=== PATIENT | female | born 1970 | race Caucasian/White ===

== ENCOUNTER 2017-09-29 17:52 | Observation (INO) ==
--- NOTE | 2017-09-29 18:38 | Emergency Department Note ---
START Narrative - START START: 47-year-old female presented to the emergency Department chief complaint of left lateral chest pain. Patient recently started taking Chantix on Wednesday. She was concerned that this could possibly be causing her symptoms. She states approximately 2 days ago she started having left lateral pectoralis major tenderness. This pain did not radiate. She denies diaphoresis, nausea, vomiting with this. She has no significant cardiac history. She has no history of blood clots, hormonal replacement, recent long trips or family history of blood clots. Patient states the pain gets worse when she lays back and stretches that side. We will perform a cardiac workup including EKG, troponin, chest x-ray. We will send this patient out to the 19. Patient is alert and oriented 3 in the room and stable vital signs at this time. She agrees with this plan. <Ary Hernandez - Last Filed: 09/29/17 18:36> - START START: I examined this patient and my medical decision-making was reviewed with the Resident Physician. I agree with the documented findings, disposition and treatment plan as described except to the extent set forth below. Initial start note done. Patient with chest pain workup. We will sign this out to the evening her physician Dr. Aliza Duarte for further management and disposition. <Carlos Hayes - Last Filed: 09/29/17 18:44>
[2017-09-29 19:08] LABS: Basophils # 0.1 K/mcL (0.0-0.2); Basophils % 0.6 %; Eosinophils # 0.2 K/mcL (0.0-0.6); Eosinophils % 2.6 %; Hematocrit 39.9 % (35.3-44.9); Hemoglobin 13.3 g/dL (11.5-15.4); Immature Granulocytes % 0.3 % (0-4); Immature Platelets 5.6 % (1.1-6.1); Lymphocytes # 2.1 K/mcL (0.6-4.6); Lymphocytes % 26.5 %; Mean Corpuscular HGB Conc 33.3 g/dL (31.6-35.5); Mean Corpuscular Hemoglobin 28.8 pg (28.0-33.3); Mean Corpuscular Volume 86.4 fL (83.0-100.0); Mean Platelet Volume 10.5 fL (9.4-12.4); Monocytes # 0.4 K/mcL (0.0-1.3); Monocytes % 4.5 %; Neutrophils # 5.2 K/mcL (1.6-8.9); Platelet Count 329 K/mcL (140-400); Red Blood Count 4.62 M/mcL (3.82-4.97); Red Cell Distribution Width 13.3 % (11.5-14.5); Segmented Neutrophils % 65.5 %
[2017-09-29 19:21] LABS: BUN/Creatinine Ratio 13 (6-26); Blood Urea Nitrogen 10 mg/dL (7-20); Calcium 9.3 mg/dL (8.6-10.8); Carbon Dioxide 25 mEq/L (19-29); Chloride 106 mEq/L (98-109); Glucose 91 mg/dL (70-99); Osmolality,Calculated 287 (280-300); Potassium 3.7 mEq/L (3.5-4.5); Sodium 139 mEq/L (136-145); eGFR For African Americans > 60 (> 60); eGFR For Non-African Americans > 60 (> 60)
[2017-09-29] MEDS ORDERED: Aspirin 81 MG TAB.CHEW PO ONE (19:40)
[2017-09-29] MEDS ORDERED: Ipratropium/Albuterol Neb 3 ML IH ONE (20:29)
--- NOTE | 2017-09-29 21:03 | Emergency Department Note ---
Disposition Clinical Impression: Chest pain Qualifiers: Chest pain type: unspecified Qualified Code(s): R07.9 - Chest pain, unspecified Disposition: Admitted As Inpatient Condition: Good General Adult HPI - General Chief complaint: ED Shortness of Breath/Dyspnea Stated complaint: SOB/EKG Time Seen by Provider: 09/29/17 18:28 Source: patient Limitations: no limitations Nursing Notes Reviewed: Yes Vital Signs Reviewed: Yes ( ) - History of Present Illness HPI Narrative: Patient presents as a signout from the day team. Patient presents for evaluation of chest pain and exertional dyspnea. Seen at outpatient office with abnormal EKG. Referred to the emergency department. Patient states symptoms started several days ago with left-sided chest pain that is worse with movement and exertion. 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 Patient cannot walk up her normal amount of steps without getting short of breath. Patient has had generalized fatigue. Pain does not radiate. No associated nausea or vomiting. No diaphoresis. Her vital signs are 100% on room air. Pulse rate 80. The risk factors for PE. No history of PE. There are active cancer. No recent surgeries. No family history of PE. PERC criteria negative. Pain Scale: 0 - Related Data Home Medications Medication Instructions Recorded Confirmed No Known Home Drugs 09/29/17 09/29/17 Allergies Allergy/AdvReac Type Severity Reaction Status Date / Time acetaminophen AdvReac Rash Verified 09/29/17 21:31 [From Tylenol Sinus Severe Congest] guaifenesin AdvReac Rash Verified 09/29/17 21:31 [From Tylenol Sinus Severe Congest] pseudoephedrine AdvReac Rash Verified 09/29/17 21:31 [From Tylenol Sinus Severe Congest] Review of Systems: CONSTITUTIONAL: fatigue No weight loss, fever, chills, weakness HEENT: Eyes: No visual changes. Ears, Nose, Throat: No hearing loss, difficulty talking or unable to swallow. SKIN: No rash or itching. CARDIOVASCULAR: chest pain; exertional dyspnea RESPIRATORY: No shortness of breath, cough or sputum. GASTROINTESTINAL: No anorexia, nausea, vomiting or diarrhea. No abdominal pain or blood. GENITOURINARY: No burning on urination or hematuria. NEUROLOGICAL: No headache, dizziness, syncope, paralysis, ataxia, numbness or tingling in the extremities. No change in bowel or bladder control. MUSCULOSKELETAL: No muscle pain, back pain, joint pain or stiffness. 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 CV: RRR, no MRGs Abdomen: Soft, non-tender; no rebound or gaurding Extremities: No peripheral edema or extremity lymphadenopathy Skin: Normal temperature; no rash, ulcers or lesions Psych: Appropriate mood and affect Neuro: alert and oriented to person, place and time - General Limitations: no limitations General appearance: alert Course - Reevaluation(s) Reevaluation #1: Patient's blood work is unremarkable. Patient's symptoms did not improve with albuterol. Patient's EKG has inverted T waves in anterior leads as well as in lead 3. Patient was brought into the hospital for further evaluation. - Consultations Consultation #1: Discussed with the Hospitalist. Pt accepted for admission. Vital Signs Temperature 98.5 F 09/29/17 18:18 Pulse Rate 92 09/29/17 18:18 Respiratory Rate 16 09/29/17 18:18 Blood Pressure 128/93 09/29/17 18:18 O2 Sat by Pulse Oximetry 100 09/29/17 18:18 Temperature 98.5 F 09/29/17 18:18 Pulse Rate 84 09/29/17 21:36 Respiratory Rate 16 09/29/17 21:36 Blood Pressure 123/86 09/29/17 21:36 O2 Sat by Pulse Oximetry 97 09/29/17 21:36 Oxygen Delivery Oxygen Delivery Room Air Medical Decision Making - Medical Records Medical records reviewed: Yes I reviewed the patient's medical records. - Lab Data Lab results reviewed: Yes I reviewed the patient's lab results. Result diagrams: 09/29/17 19:01 09/29/17 19:01 Lab Results 11/15/17 11/15/17 11/15/17 Range/Units 19:01 19:01 19:01 WBC 8.0 (4.3-11.1) K/mcL RBC 4.62 (3.82-4.97) M/mcL Hgb 13.3 (11.5-15.4) g/dL Hct 39.9 (35.3-44.9) % MCV 86.4 (83.0-100.0) fL MCH 28.8 (28.0-33.3) pg MCHC 33.3 (31.6-35.5) g/dL RDW 13.3 (11.5-14.5) % Plt Count 329 (140-400) K/mcL MPV 10.5 (9.4-12.4) fL Immature Gran % 0.3 (0-4) % Seg Neutrophils % 65.5 % Lymphocytes % 26.5 % Monocytes % 4.5 % Eosinophils % 2.6 % Basophils % 0.6 % Neutrophils # 5.2 (1.6-8.9) K/mcL Lymphocytes # 2.1 (0.6-4.6) K/mcL Monocytes # 0.4 (0.0-1.3) K/mcL Eosinophils # 0.2 (0.0-0.6) K/mcL Basophils # 0.1 (0.0-0.2) K/mcL Immature Plt Fraction 5.6 (1.1-6.1) % Sodium 139 (136-145) mEq/L Potassium 3.7 (3.5-4.5) mEq/L Chloride 106 (98-109) mEq/L Carbon Dioxide 25 (19-29) mEq/L BUN 10 (7-20) mg/dL Creatinine 0.76 (0.57-1.11) mg/dL Est GFR ( Amer) > 60 (> 60) Est GFR (Non-Af Amer) > 60 (> 60) BUN/Creatinine Ratio 13 (6-26) Glucose 91 (70-99) mg/dL Calculated Osmolality 287 (280-300) Calcium 9.3 (8.6-10.8) mg/dL Troponin I 0.00 (0-0.03) ng/mL - Radiology Data Radiology results reviewed: Yes I reviewed the patient's radiology results. - EKG Data EKG #1 EKG attestation: Yes I reviewed and interpreted this EKG. EKG results narrative: EKG shows sinus rhythm with ventricular rate of 67 bpm. OH 172. QRS 92. QTC 396. Patient has no significant ST elevations or depressions. Patient has T- wave inversion in V1 and V2 V3 V4 and lead 3. Attestation Statement - Attestation Attestation: I examined this patient and my medical decision-making was reviewed with the Resident Physician, Dr. Geiger. I agree with the documented findings, disposition and treatment plan as described except to the extent set forth below. Patient is a 47-year-old white female, history of smoking who presents to the emergency department seen initially by the [facility] team and Dr. Emanuel for initial assessment for chest pain and shortness of breath. Patient had no prior cardiac evaluation in the past and upon initial evaluation in an outlying facility she was found to have an abnormal EKG and sent to the emergency department. Patient states over the last 2 days she has been having exertional dyspnea associated with some left-sided chest pain which starts under her left axillary and wraps around the left upper aspect of her chest wall. Patient states her symptoms are relieved with rest. She denies any fevers or chills, cough, no diaphoresis, no lightheadedness or syncope, no abdominal pain or flank pain. I agree with patient's physical exam findings as documented. Patient's EKG showed a normal sinus rhythm but with T-wave inversion in V1 through V4. There is no old EKG for comparison. Patient's laboratory evaluation including troponin were negative. Patient meets perk-negative criteria. Chest x-ray was unremarkable. Patient's clinical symptoms and EKG concerning for unstable angina, discussed admission with the patient and she is in agreement with this plan. Case was discussed with the hospitalist who accepted the patient for admission for further evaluation and management.
[2017-09-30] MEDS ORDERED: Naloxone 0.4 MG/ML INJ IVP PRN (00:34)
--- NOTE | 2017-09-30 05:07 | Internal Med History&Physical ---
Date of Encounter: 09/30/17 Time of Encounter: 00:15 Assessment and Plan (1) Chest pain Current visit: Yes Status: Acute Patient has a typical chest pain. With EKG changes. Need to rule out ACS. - Patient has no tachycardia or desaturation. D-dimer negative, PE is less likely. - We will place the patient on continuous cardiac monitoring. - 3 sets of troponin - Echocardiogram - Repeat EKG in a.m. - Cardiology consult Qualifiers: Chest pain type: chest pain on breathing Qualified Code(s): R07.1 - Chest pain on breathing; R07.81 - Pleurodynia (2) DVT prophylaxis Current visit: Yes Status: Acute Heparin subcutaneously Internal Medicine - H&P: HPI Chief complaint: Chest pain Admitted From: Home Plans for Post Hospital Care: Home History of present illness: Ms. Garza is a 47 year old female generally in good health, on no home medication, present to ER for chest pain. Patient said she started to have chest pain since yesterday about the noon time. Pain is located on left side of chest, under the arm, radiated to left shoulder, and also has mid chest heaviness. Patient also complaining exertional shortness of breath since yesterday. Patient said the pain getting worse when she takes a deep breath. Patient denies fever, cough, nausea, vomiting, or diaphoresis. Patient went to see primary doctor today and had a EKG, which was abnormal. She was advised that to come to ER immediately. In ER, repeat EKG shows V2-v4 T wave inversion. She was admitted to rule out ACS. Patient denies leg swelling or leg pain, she has no recent travel. Past Med Surg Social Fam HX - Past Medical History Medical history: no medical history Psychiatric history: no psych history - Past Surgical History Surgical History: cholecystectomy - Social History Smoking Status: Current every day smoker Packs per day: 0.5 Smokeless Tobacco Status: No Alcohol use: none Drug use: none - Family History Father Hx Family Cardiac Disorders: Yes (Stents and CABG) Internal Medicine - H&P: Meds No Known Home Drugs 09/29/17 [History] 3 Allergy/AdvReac Type Severity Reaction Status Date / Time acetaminophen AdvReac Rash Verified 09/29/17 21:31 [From Tylenol Sinus Severe Congest] guaifenesin AdvReac Rash Verified 09/29/17 21:31 [From Tylenol Sinus Severe Congest] pseudoephedrine AdvReac Rash Verified 09/29/17 21:31 [From Tylenol Sinus Severe Congest] All Systems PM: A 10-system review of systems was performed and is negative for pertinent findings except as documented above in the HPI. - Constitutional Vitals: Temp Pulse Resp BP Pulse Ox 98.0 F 86 16 99/62 95 09/30/17 03:12 09/30/17 03:12 09/30/17 03:12 09/30/17 03:12 09/30/17 03:12 General appearance: Present: A&O X 3, no acute distress, answers questions appropriately - Head Head exam: Present: atraumatic, normocephalic - Eye Eye exam: Present: PERRL, conjuntiva pink, sclera anicteric Pupils: Present: PERRL - Neck Neck exam general surgery: Present: supple, trachea midline. Absent: lymphadenopathy - Respiratory Respiratory exam: Present: chest wall tenderness, CTAB. Absent: accessory muscle use, rales, rhonchi, wheezes - Cardiovascular Cardiovascular exam: Present: RRR, +S1, +S2. Absent: diastolic murmur, gallop, rubs, systolic murmur - GI/Abdominal GI/Abdominal exam: Present: normal bowel sounds, soft, no peritoneal signs. Absent: distended, tenderness - Extremities Exam Extremities exam: Present: warm, radial pulses palpable and symmetrical. Absent : calf tenderness, cyanotic, pedal edema - Neurological Exam Neurological exam: Present: CN II-XII intact, oriented X3, no focal deficits. Absent: pronater drift, facial droop, speech deficit - Skin Skin exam: Present: dry, intact Internal Med - H&P Results - Labs CBC & Chem 7: 09/29/17 19:01 09/29/17 19:01 Labs: Cardiac Enzymes 09/30/17 Range/Units 00:40 Troponin I 0.00 (0-0.03) ng/mL - EKG Data -: EKG Interpreted by Myself (T wave inversion on V2-V4) EKG shows normal: sinus rhythm Rate: normal
[2017-09-30] MEDS ORDERED: *HR* Heparin 5,000 UNIT/ML VIAL SQ SCH (06:00)
[2017-09-30] MEDS ORDERED: Ibuprofen 400 MG TABLET PO ONE ×2 (06:28→13:32)
[2017-09-30 07:23] LABS: Basophils % 0.6 %; Eosinophils # 0.1 K/mcL (0.0-0.6); Eosinophils % 2.6 %; Hematocrit 38.1 % (35.3-44.9); Hemoglobin 12.6 g/dL (11.5-15.4); Immature Granulocytes % 0.4 % (0-4); Lymphocytes # 1.3 K/mcL (0.6-4.6); Lymphocytes % 24.6 %; Mean Corpuscular HGB Conc 33.1 g/dL (31.6-35.5); Mean Corpuscular Hemoglobin 28.5 pg (28.0-33.3); Mean Corpuscular Volume 86.2 fL (83.0-100.0); Mean Platelet Volume 10.5 fL (9.4-12.4); Monocytes # 0.3 K/mcL (0.0-1.3); Monocytes % 6.3 %; Neutrophils # 3.3 K/mcL (1.6-8.9); Platelet Count 302 K/mcL (140-400); Red Blood Count 4.42 M/mcL (3.82-4.97); Red Cell Distribution Width 13.3 % (11.5-14.5); Segmented Neutrophils % 65.5 %
[2017-09-30 07:47] LABS: BUN/Creatinine Ratio 13 (6-26); Blood Urea Nitrogen 9 mg/dL (7-20); Calcium 8.6 mg/dL (8.6-10.8); Carbon Dioxide 25 mEq/L (19-29); Chloride 108 mEq/L (98-109); Glucose 97 mg/dL (70-99); Osmolality,Calculated 289 (280-300); Potassium 3.9 mEq/L (3.5-4.5); Sodium 140 mEq/L (136-145); eGFR For African Americans > 60 (> 60); eGFR For Non-African Americans > 60 (> 60)
--- NOTE | 2017-09-30 09:19 | Cardiology Consult Note ---
<Sandro Cabrera - Last Filed: 09/30/17 14:54> Date of Encounter: 09/30/17 Time of Encounter: 09:17 Assessment and Plan (1) Chest pain Current Visit: Yes Status: Acute Chest pain has diminished but still present. Associated with positional changes. Trop neg x3. EKG reviewed from yesterday shows T wave inversions in anterolateral leads. No previous for comparison. NPO Complete ECHO with Stress ECHO ordered for today to further investigate - Results pending Qualifiers: Chest pain type: chest pain on breathing Qualified Code(s): R07.1 - Chest pain on breathing; R07.81 - Pleurodynia (2) Fibromyalgia Current Visit: Yes Status: Chronic Discussion w patient/family: The assessment and plan as outlined above was discussed with the patient and/or family members who expressed understanding and agreement. All questions were answered. Thank you for involving us in the care of your patient. Please call with any questions. History of Present Illness Chief complaint: chest pain History of present illness: Ms. Garza is a very pleasant 47 year old female with a past medical history of GERD, depression and fibromyalgia who presented to the [facility] with a chief complaint of left lateral chest wall pain that radiated to her left shoulder. She reports that she had similar pain previously associated with her fibromyalgia, but starting Wednesday of this week, the pain was worsening and sharp in nature. She did not take any medication for this complaint and the pain is still present but improved today. Patient states the pain worsens with movement and has been associated with shortness of breath. She recently started Chantix on Wednesday and is worried that the medication could be causing her current complaints. On Wednesday, she stopped taking her Chantix and went to her PCP. Of note, her EKG in the office showed T wave inversions in the anterolateral leads and was admitted via the hospitalist service for further workup. Cardiology was consulted and on evaluation, she reports a smoking history of 0.5PPD for 24 years. No EtOH manny or illicit drugs. No prior cardiac workup or known disease. Father had triple CABG with PCI but unknown age of onset. Trop neg x3, DDIMER neg and kidney function normal. We will continue to follow and offer further recommendations. Past Med Surg Social Fam HX - Past Medical History Medical history: no medical history Psychiatric history: no psych history - Past Surgical History Surgical History: cholecystectomy - Social History Smoking Status: Current every day smoker Packs per day: 0.5 Smokeless Tobacco Status: No Alcohol use: none Drug use: none - Family History Father Hx Family Cardiac Disorders: Yes (Stents and CABG) Medications and Allergies No Known Home Drugs 09/29/17 [History] 3 Allergy/AdvReac Type Severity Reaction Status Date / Time acetaminophen AdvReac Rash Verified 09/29/17 21:31 [From Tylenol Sinus Severe Congest] guaifenesin AdvReac Rash Verified 09/29/17 21:31 [From Tylenol Sinus Severe Congest] pseudoephedrine AdvReac Rash Verified 09/29/17 21:31 [From Tylenol Sinus Severe Congest] All Systems Review: A 10-system review of systems was performed and is negative for pertinent findings except as documented above in the HPI. - Constitutional Constitutional: no fatigue, no headache(s), no weight loss - Cardiovascular Cardiovascular: as per HPI - Respiratory Respiratory: dyspnea, no cough - Gastrointestinal Gastrointestinal: no abdominal pain - Genitourinary Genitourinary: no dysuria - Musculoskeletal Musculoskeletal: no abnormal gait - Integumentary Integumentary: no erythema - Neurological Neurological: no focal weakness Physical Examination Vital Signs, Last 4 Hours Temp Pulse Resp BP Pulse Ox 09/30/17 07:40 98.3 F 73 15 94/64 98 General: Conversant, No Apparent Distress HEENT: Atraumatic, Normocephaly, Mucus Membranes Moist Neck: No JVD, Normal carotid pulses Cardiac: Reg Rate and Rhythm, Normal S1 and S2, No Murmur Lungs: Normal Breath Sounds, No Wheeze, Rales, Rhonchi Neuro: Alert and responsive, No focal deficits noted Abdomen: Soft, Non-Tender Skin: No rashes noted on visualized skin Musculoskeletal: Other (mid axillary chest wall tenderness at the nipple line) Extremities: No Clubbing, No Cyanosis, No Edema, Normal Pulses Results 09/30/17 07:01 09/30/17 07:01 Lab Results 09/30/17 09/30/17 09/30/17 00:40 00:40 07:01 WBC 5.1 Hgb 12.6 Hct 38.1 Plt Count 302 D-Dimer 251 Sodium Potassium Chloride Carbon Dioxide BUN Creatinine Glucose Calcium Troponin I 0.00 09/30/17 09/30/17 07:01 07:01 WBC Hgb Hct Plt Count D-Dimer Sodium 140 Potassium 3.9 Chloride 108 Carbon Dioxide 25 BUN 9 Creatinine 0.67 Glucose 97 Calcium 8.6 Troponin I 0.00 - Imaging and Cardiology Chest Xray: report reviewed - EKG Interpretation EKG results cardiology: personally reviewed, no diagnostic ischemia (T wave inversions in anterolateral leads, no comparison) Consult Discharge Plan - Plan Referrals: Mariela Morales, PRODUCT DEVELOPMENT WORKER [Primary Care Provider] - <Drea Candelario - Last Filed: 09/30/17 17:00> Date of Encounter: 09/30/17 - Attending Attestation I examined this patient and my medical decision-making was reviewed with the Resident Physician. I agree with the documented findings, disposition and treatment plan. Ms. Garza presented with atypical chest pain and negative troponin. ECG demonstrates TWI in the anterolateral leads - no prior echo for comparison. We recommended an echo and stress test. Preliminary results for stress testing are negative. Awaiting echo report. Assessment and Plan Discussion w patient/family: The assessment and plan as outlined above was discussed with the patient and/or family members who expressed understanding and agreement. All questions were answered. Thank you for involving us in the care of your patient. Please call with any questions. History of Present Illness History of present illness: Ms. Garza is a 47 year old female All Systems Review: A 10-system review of systems was performed and is negative for pertinent findings except as documented above in the HPI. Physical Examination Vital Signs, Last 4 Hours Temp Pulse Resp BP Pulse Ox 09/30/17 15:11 98.0 F 70 16 96/64 97 Results 09/30/17 07:01 09/30/17 07:01 Lab Results 09/30/17 09/30/17 09/30/17 00:40 00:40 07:01 WBC 5.1 Hgb 12.6 Hct 38.1 Plt Count 302 D-Dimer 251 Sodium Potassium Chloride Carbon Dioxide BUN Creatinine Glucose Calcium Troponin I 0.00 09/30/17 09/30/17 07:01 07:01 WBC Hgb Hct Plt Count D-Dimer Sodium 140 Potassium 3.9 Chloride 108 Carbon Dioxide 25 BUN 9 Creatinine 0.67 Glucose 97 Calcium 8.6 Troponin I 0.00
[2017-09-30 15:12] VITALS: BP 96/64
--- NOTE | 2017-09-30 17:11 | Discharge Summary ---
Date of Encounter: 09/30/17 Time of Encounter: 17:07 - Discharge Diagnosis (1) Chest pain Priority: Primary Status: Resolved Comments: Mauro Garza is a 47 old female with past medical history fibromyalgia who presented to [facility] on 09/29/2017 from PCPs office with concern for EKG changes. She was placed in observation status for further workup and treatment. 1. Chest pain: With associated shortness of breath that started day of presentation. Was seen at PCPs office who noted abnormal EKG she was advised to go to ER. CXR non-acute, d-dimer normal. Serial troponins negative, EKG without acute ST changes. Echo with EF 60% and mild diastolic dysfunction. Stress echo negative for ischemia, no segmental wall motion abnormalities. Chest pain and shortness of breath resolved without intervention. Etiology unknown as patient declined further workup and requested discharge. Patient was advised to follow-up with PCP within one week and return to ER if chest pain and/or shortness of breath recurred. Qualifiers: Chest pain type: chest pain on breathing Qualified Code(s): R07.1 - Chest pain on breathing; R07.81 - Pleurodynia - Discharge Medications Home Medications: No Known Home Drugs 09/29/17 [History] Allergies/Adverse Reactions: 3 Allergy/AdvReac Type Severity Reaction Status Date / Time acetaminophen AdvReac Rash Verified 09/29/17 21:31 [From Tylenol Sinus Severe Congest] guaifenesin AdvReac Rash Verified 09/29/17 21:31 [From Tylenol Sinus Severe Congest] pseudoephedrine AdvReac Rash Verified 09/29/17 21:31 [From Tylenol Sinus Severe Congest] Procedures/tests Complete & Pending: Procedures Performed prior 72 hours Category Date Time Status ECG 12 lead ECG [ECG] AM 0600 Y 09/30/17 06:00 Ordered EV echocardiogram Routine Y 09/30/17 10:18 Completed EV stress echo Routine Y 09/30/17 10:12 Completed Date of admission: 09/29/17 22:07 Primary care physician: Mariela Morales, Consults: 09/30/17 00:37 Consult to Cardiology [CONS] Routine Comment: Consulting Provider: Cardiology [place] Reason for Consult: Chest pain, EKG changes Call Completed: No Discharging clinician: Nilsa Nunes Anticipated date of discharge: 09/30/17 - Patient Status Disposition: Home, Self-Care Condition: Good Functional capacity at discharge: independent ambulation Overall status at discharge: patient is back to baseline - Discharge Instructions Instructions: Chest Pain (DC), Fibromyalgia (DC) Follow Up With: Mariela Morales COAT AGENT [Primary Care Provider] - - Diet and Activity Activity: increase activity as tolerated Diet: advance to your usual diet Interval History: See assessment and plan for hospital course Hospital course: Ms. Garza is a 47 year old female - Time Spent with Patient Total time spent providing and/or coordinating discharge services: - Constitutional Vitals: Temp Pulse Resp BP Pulse Ox 98.0 F 70 16 96/64 97 09/30/17 15:11 09/30/17 15:11 09/30/17 15:11 09/30/17 15:11 09/30/17 15:11 General appearance: Present: A&O X 3, no acute distress, answers questions appropriately
--- NOTE | 2017-09-30 17:34 | Event Note ---
Date of Encounter: 09/30/17 Time of Encounter: 17:32 - Cardiology Event Note Stress testing and Echo did not cross into [employer] system yet. Reviewed data in [employer]. Stress testing is normal and no concerning echo findings. No further cardiac testing is warranted. Will sign off. Please call with questions.
--- NOTE | 2017-09-30 18:03 | Electrocardiograph Report ---
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
== END 2017-09-30 18:12 | disposition home or self-care (01) ==
LOC: EMEROO 17:52 → 3BNU 17:52
PROVIDERS: ADMIT Internal Medicine; ATTEND Registered Nurse